=== PATIENT | female | born 1970 | race Caucasian/White ===

== ENCOUNTER 2016-11-05 08:12 | Emergency (ER) | payer MEDICAID ==
[~2016-11-05] VITALS: Ht 157.5 cm; Wt 108.9 kg
[~2016-11-05 08:12] MED LIST: CLON0.5T3 PO; DIVA500T4 PO; KEP500T PO; LURA40TA PO; NOR10T PO; PROM25TA5 PO; PROVENTIL; TEMA30CA PO; TRAM50TA2 PO
[2016-11-05 08:31] VITALS: BP 175/66
[2016-11-05] MEDS ORDERED: ONDANSETRON ODT 4 MG TAB PO ONE (08:45)
== END 2016-11-05 09:19 | disposition home or self-care (01) ==
LOC: ER 08:12
DX: T38.0X1A Poisoning by glucocorticoids and synthetic analogues, accidental (unintentional), initial encounter (principal); J45.909 Unspecified asthma, uncomplicated; Z90.710 Acquired absence of both cervix and uterus; Z98.51 Tubal ligation status; Z91.5 Personal history of self-harm; G89.29 Other chronic pain; M54.9 Dorsalgia, unspecified; Z79.899 Other long term (current) drug therapy; Z88.6 Allergy status to analgesic agent; Z91.040 Latex allergy status; Z91.09 Other allergy status, other than to drugs and biological substances; Y92.9 Unspecified place or not applicable
CPT/HCPCS: 99282; Q0162

== ENCOUNTER 2017-07-31 15:38 | Emergency (ER) | payer MEDICAID ==
[~2017-07-31] VITALS: Ht 157.5 cm; Wt 107.5 kg
[2017-07-31 16:05] VITALS: BP 142/68
[2017-07-31] MEDS ORDERED: KETOROLAC TROMETH 60MG/2ML VIAL IM ONE (16:15)
== END 2017-07-31 17:02 | disposition home or self-care (01) ==
LOC: ER 15:40
DX: G89.29 Other chronic pain (principal); M54.5 Low back pain; M54.16 Radiculopathy, lumbar region; J45.909 Unspecified asthma, uncomplicated; Z88.6 Allergy status to analgesic agent; Z88.8 Allergy status to other drugs, medicaments and biological substances; Z91.040 Latex allergy status; Z79.899 Other long term (current) drug therapy; Z90.710 Acquired absence of both cervix and uterus; Z98.51 Tubal ligation status
CPT/HCPCS: 96372; 99283; J1885

== ENCOUNTER 2018-03-05 08:15 | Emergency (ER) | payer MEDICAID ==
[~2018-03-05] VITALS: Ht 157.5 cm; Wt 104.3 kg
[~2018-03-05 08:15] MED LIST changes: +CLON0.5T10 PO; -CLON0.5T3 PO
[2018-03-05 08:38] VITALS: BP 168/80
[2018-03-05] MEDS ORDERED: LIDOCAINE 1%HCL (LOCAL ANESTH) 10 ML MDV ONE (09:29)
[2018-03-05] MEDS ORDERED: LIDOCAINE 1% HCL (LOCAL ANESTH.) INJ 20ML MDV IJ ONE (09:30)
== END 2018-03-05 10:02 | disposition home or self-care (01) ==
LOC: ER 08:17
DX: N75.1 Abscess of Bartholin's gland (principal); J45.909 Unspecified asthma, uncomplicated; Z90.710 Acquired absence of both cervix and uterus; Z98.51 Tubal ligation status; Z79.899 Other long term (current) drug therapy; Z88.6 Allergy status to analgesic agent; Z88.8 Allergy status to other drugs, medicaments and biological substances; Z91.040 Latex allergy status
CPT/HCPCS: 56420; 99283; J2001

== ENCOUNTER → 2019-07-29 | Emergency (ER) | payer MEDICAID ==
[~2019-07-29] VITALS: Ht 160 cm; Wt 104.3 kg
[~2019-07-29] MED LIST changes: +MORPHINE SULFATE 4 MG/ML SYR/VIAL IV ONE; +ONDANSETRON HCL 4 MG/2 ML VIAL IV ONE; +PANTOPRAZOLE 40 MG/10 ML VIAL INJ IV STA; +SODIUM CHLORIDE 0.9% 1,000 ML IVB ONE
[2019-07-29 14:14] LABS: Urine WBC None Seen /hpf (0 - 5)
[2019-07-29 14:22] LABS: Urine Bacteria NONE SEEN /hpf (None Seen); Urine Blood Negative /uL (Negative); Urine Mucus FEW (None Seen)
[2019-07-29 15:34] LABS: Basophils # (auto) 0.1 10 ^3/uL (0-0.2); Basophils % (auto) 0.8 % (0.0-2.0); Hemoglobin 15.4 g/dL (12.2-16.2); Neutrophils % (auto) 68.4 % (37.0-80.0); Nucleated Red Blood Cells % 0.1 %
[2019-07-29 15:36] LABS: Eosinophils # (auto) 0.1 10 ^3/uL (0-0.8); Eosinophils % (auto) 1.7 % (0.0-7.0); Hematocrit 45.9 % (36.0-46.0); Lymphocytes # (auto) 1.7 10 ^3/uL (0.4-5.4); Mean Corpuscular Hemoglobin 30.2 pg (28.0-32.0); Mean Corpuscular Hgb Conc. 33.5 g/dL (32.0-36.0); Monocytes # (auto) 0.8 10 ^3/uL (0-1.3); Monocytes % (auto) 9.1 % (0.0-12.0); Neutrophils # (auto) 5.7 10 ^3/uL (1.6-8.6); Platelet Count (auto) 186 10^3/uL (140-450); Red Cell Distribution Width 14.6 % (11.8-14.3); White Blood Cell 8.4 10^3/uL (4.4-10.8)
[2019-07-29 16:27] VITALS: BP 129/60
== END | disposition home or self-care (01) ==
LOC: ER 13:54
DX: R10.11 Right upper quadrant pain (principal); J45.909 Unspecified asthma, uncomplicated; Z98.51 Tubal ligation status; Z90.710 Acquired absence of both cervix and uterus; Z88.6 Allergy status to analgesic agent; Z91.040 Latex allergy status
CPT/HCPCS: 36415; 76705; 81001; 85025; 96374; 96375; 99284; C9113; J2270; J2405; J7030

== ENCOUNTER 2019-11-08 10:51 | Emergency (ER) | payer MEDICAID ==
[~2019-11-08] VITALS: Ht 157.5 cm; Wt 99.8 kg
[~2019-11-08 10:51] MED LIST changes: -MORPHINE SULFATE 4 MG/ML SYR/VIAL IV ONE; -ONDANSETRON HCL 4 MG/2 ML VIAL IV ONE; -PANTOPRAZOLE 40 MG/10 ML VIAL INJ IV STA; -SODIUM CHLORIDE 0.9% 1,000 ML IVB ONE
[2019-11-08] MEDS ORDERED: SODIUM CHLORIDE 0.9% 1,000 ML IV ONE (11:08)
[2019-11-08 11:57] LABS: Urine Bacteria NONE SEEN /hpf (None Seen); Urine Blood Negative /uL (Negative); Urine Mucus FEW (None Seen); Urine Specific Gravity 1.009 (1.001-1.035); Urine WBC <1 /hpf (0 - 5)
[2019-11-08 12:07] LABS: Basophils # (auto) 0.1 10 ^3/uL (0-0.2); Basophils % (auto) 0.8 % (0.0-2.0); Eosinophils # (auto) 0.2 10 ^3/uL (0-0.8); Eosinophils % (auto) 2.1 % (0.0-7.0); Hematocrit 44.2 % (36.0-46.0); Hemoglobin 14.4 g/dL (12.2-16.2); Lymphocytes # (auto) 1.4 10 ^3/uL (0.4-5.4); Lymphocytes % (auto) 18.5 % (10.0-50.0); Mean Corpuscular Hemoglobin 29.5 pg (28.0-32.0); Mean Corpuscular Hgb Conc. 32.5 g/dL (32.0-36.0); Mean Corpuscular Volume 90.5 fL (80.0-100.0); Monocytes # (auto) 0.5 10 ^3/uL (0-1.3); Neutrophils # (auto) 5.6 10 ^3/uL (1.6-8.6); Neutrophils % (auto) 71.6 % (37.0-80.0); Platelet Count (auto) 232 10^3/uL (140-450); Red Blood Cells 4.89 10^6/uL (4.0-5.20); Red Cell Distribution Width 14.8 % (11.8-14.3); White Blood Cell 7.8 10^3/uL (4.4-10.8)
[2019-11-08 12:24] LABS: Albumin 3.4 g/dL (3.4-5.0); Anion Gap 7 (5-15); Blood Urea Nitrogen 7 mg/dL (7-18); Calcium 8.3 mg/dL (8.5-10.1); Carbon Dioxide 22 mmol/L (21-32); Chloride 108 mmol/L (98-107); Glucose 103 mg/dL (74-106); Potassium 3.9 mmol/L (3.5-5.1); Sodium 137 mmol/L (136-145)
[2019-11-08 12:27] LABS: Alanine Aminotransferase 13 U/L (13-56); Alkaline Phosphatase 81 U/L (45-117); Aspartate Aminotransferase 18 U/L (15-37); BUN/Creatinine Ratio 9.6; Bilirubin, Total 0.4 mg/dL (0.2-1.0); GFR African American 110 mL/min; GFR Non-African American 91 mL/min
[2019-11-08 16:17] VITALS: BP 127/70
== END 2019-11-08 16:28 | disposition home or self-care (01) ==
LOC: ER 10:51
DX: R42 Dizziness and giddiness (principal); F41.9 Anxiety disorder, unspecified; J45.909 Unspecified asthma, uncomplicated; F32.9 Major depressive disorder, single episode, unspecified
CPT/HCPCS: 36415; 70450; 71046; 80053; 81001; 84484; 85025

== ENCOUNTER 2020-11-21 18:07 | Emergency (ER) | payer MEDICAID ==
[~2020-11-21] VITALS: Ht 157.5 cm; Wt 104.3 kg
[2020-11-21 20:10] VITALS: BP 139/77
[2020-11-21] MEDS ORDERED: KETOROLAC TROMETH 60MG/2ML VIAL IM ONE (20:45)
== END 2020-11-21 21:24 | disposition home or self-care (01) ==
LOC: ER 18:08
DX: S33.5XXA Sprain of ligaments of lumbar spine, initial encounter (principal); M54.42 Lumbago with sciatica, left side; M54.16 Radiculopathy, lumbar region; E66.9 Obesity, unspecified; Z68.41 Body mass index [BMI] 40.0-44.9, adult; J45.909 Unspecified asthma, uncomplicated; Z90.710 Acquired absence of both cervix and uterus; Z79.899 Other long term (current) drug therapy; Z88.5 Allergy status to narcotic agent; Z88.8 Allergy status to other drugs, medicaments and biological substances; Z91.040 Latex allergy status; X58.XXXA Exposure to other specified factors, initial encounter; Y93.89 Activity, other specified; Y92.89 Other specified places as the place of occurrence of the external cause; Y99.8 Other external cause status
CPT/HCPCS: 72100; 96372; 99283; J1885

== ENCOUNTER 2020-12-17 12:10 | Emergency (ER) | payer MEDICAID ==
[~2020-12-17] VITALS: Ht 157.5 cm; Wt 97.5 kg
[2020-12-17 13:53] LABS: Basophils # (auto) 0.1 10 ^3/uL (0-0.2); Basophils % (auto) 0.7 % (0.0-2.0); Eosinophils # (auto) 0.2 10 ^3/uL (0-0.8); Eosinophils % (auto) 1.8 % (0.0-7.0); Hemoglobin 14.1 g/dL (12.2-16.2); Lymphocytes # (auto) 1.6 10 ^3/uL (0.4-5.4); Lymphocytes % (auto) 17.9 % (10.0-50.0); Mean Corpuscular Hemoglobin 29.1 pg (28.0-32.0); Mean Corpuscular Hgb Conc. 32.9 g/dL (32.0-36.0); Mean Corpuscular Volume 88.5 fL (80.0-100.0); Monocytes # (auto) 0.7 10 ^3/uL (0-1.3); Monocytes % (auto) 7.4 % (0.0-12.0); Neutrophils # (auto) 6.5 10 ^3/uL (1.6-8.6); Neutrophils % (auto) 72.2 % (37.0-80.0); Nucleated Red Blood Cells % 0.1 %; Red Blood Cells 4.86 10^6/uL (4.0-5.20); Red Cell Distribution Width 15.7 % (11.8-14.3); White Blood Cell 8.9 10^3/uL (4.4-10.8)
[2020-12-17 14:17] LABS: Albumin 3.7 g/dL (3.4-5.0); Calcium 9.2 mg/dL (8.5-10.1); Potassium 3.4 mmol/L (3.5-5.1)
[2020-12-17 14:20] LABS: BUN/Creatinine Ratio 15.1; Bilirubin, Total 0.6 mg/dL (0.2-1.0); Total Protein 6.8 g/dL (6.4-8.2)
[2020-12-17 18:04] VITALS: BP 137/74
== END 2020-12-17 18:05 | disposition home or self-care (01) ==
LOC: ER 12:10
DX: M54.12 Radiculopathy, cervical region (principal); M54.16 Radiculopathy, lumbar region; R51.9 Headache, unspecified; J45.909 Unspecified asthma, uncomplicated; R07.89 Other chest pain; Z90.710 Acquired absence of both cervix and uterus
CPT/HCPCS: 36415; 70450; 72125; 72131; 80053; 85025; 93005

== ENCOUNTER 2024-07-08 11:18 | Emergency (ER) | payer MEDICAID ==
[~2024-07-08] VITALS: Ht 157.5 cm; Wt 93.8 kg
[~2024-07-08 11:18] MED LIST changes: -CLON0.5T10 PO; +CLON0.5T4 PO; +DIVA-93 PO; -DIVA500T4 PO; -LURA40TA PO; +LURA40TA2 PO; +PROM25TA10 PO; -PROM25TA5 PO
[2024-07-08 11:34] VITALS: RESP 20; TEMP 97.8; O2SAT 98
--- NOTE | 2024-07-08 12:15 | ED.PDOC ---
History of Present Illness HPI Comments A 53 YEAR OLD FEMALE PRESENTS TO THE ED WITH CHIEF COMPLAINT OF HIGH BLOOD PRESSURE AND CHEST PAIN. PATIENT REPORTS THAT SHE HAS STARTED TO EXPERIENCE LEFT SIDED CHEST PAIN WITH ASSOCIATED RADIATION TO THE LEFT ARM AND HEADACHE FOR THE PAST 2 DAYS. PATIENT RELAYS THAT SHE TOOK HER BLOOD PRESSURE AFTER HER SYMPTOM ONSET AND NOTICED HER BP WAS ELEVATED. PATIENT STATES SHE CHECKED HER BP THROUGHOUT THE DAY AND IT REMAINED ELEVATED, SO SHE TRIED SLEEPING FOR RELIEF. PATIENT NOTES HER CHEST PAIN IS NOW MILD, BUT HER BLOOD PRESSURE HAS CONTINUED TO STAY ELEVATED WHEN NORMALLY IT IS ONLY HIGH WHEN UNDERGOING SURGERY. PATIENT DENIES ANY NUMBNESS, WEAKNESS, DIZZINESS, SOB, OR N/V. PT IS ALERT, ORIENTATION X4 WITH NORMAL GAIT. NO OTHER SYMPTOMS REPORTED AT THIS TIME OF CARE. Chief Complaint: High Blood Pressure Time Seen by MD: 12:04 Primary Care Provider: JOAN Reviewed Notes: Nurses Notes, Medications, Allergies Allergies: Coded Allergies: Propoxyphene (Verified Allergy, Severe, 11/21/20) Codeine (Verified Allergy, Mild, 11/21/20) Latex (Verified Allergy, Mild, 11/21/20) Acetaminophen (Verified Allergy, Unknown, 11/21/20) Hydrocodone (Verified Allergy, Unknown, 11/21/20) Uncoded Allergies: DARVOCET (Allergy, Mild, 12/23/10) Home Meds Active Scripts Hydrochlorothiazide W/Triamter (Dyazide 37.5/25MG) 1 Cap Cp, 1 CAP PO DAILY, #20 CAP Prov:ALINA CARPENTER 07/08/24 Levetiracetam (KEPPRA TABLET) 500 Mg Tb, 500 MG PO BID for 30 Days, TAB Prov:JAABRI TAN MD 02/28/14 Reported Medications Lurasidone Hydrochloride (LATUDA) 40 Mg Tab, 1 TAB PO QPM, #30 TAB 1 Refill 02/26/14 Clonazepam (Clonazepam) 0.5 Mg Tab, 0.5 MG PO HS, TAB 02/26/14 Promethazine Hcl (Promethazine Hcl) 25 Mg Tab, 1 TAB PO Q6HPRN, #20 TAB 02/26/14 Divalproex Sodium (Depakote Er) 500 Mg Tab, 2 TAB PO QAM, #60 TAB 1 Refill 02/26/14 Temazepam (Temazepam) 30 Mg Cap, 1 CAP PO QPM, #30 CAP 1 Refill 02/26/14 Tramadol Hcl (Tramadol Hcl) 50 Mg Tab, 50 MG PO BID 02/12/13 Hydrocodone-Acetaminophen ([place] 10/325MG) 1 Tab Tb, 1 TAB PO TID 02/12/13 [Proventil] No Conflict Check 12/23/10 Information Source: Patient Mode of Arrival: Ambulatory Severity: Moderate Timing: Days Duration: Since onset, Intermittent Prehospital treatment: None Medication Refill: For: Hypertension Past Medical History PAST MEDICAL HISTORY: Anxiety, Asthma, Depression Surgical History: , Hysterectomy, Tubal Ligation PATIENT REPRESENTATIVE History: No Pertinent PATIENT REPRESENTATIVE History Family History Family History: Reviewed,noncontributory to illness, Family hx of heart ketty, Family hx of HTN Social History Smoker: Non-Smoker Alcohol: Occasionally Drugs: Marijuana Lives In: Home Constitutional: reports: others (ANXIOUS ); denies: chills, diaphoresis, fatigue, fever, malaise, sweats, weakness EENTM: denies: blurred vision, double vision, ear bleeding, ear discharge, ear drainage, ear pain, ear ringing, eye pain, eye redness, hearing loss, mouth pain, mouth swelling, nasal discharge, nose bleeding, nose congestion, nose pain, photophobia, tearing, throat pain, throat swelling, voice changes, others Respiratory: denies: cough, hemoptysis, orthopnea, SOB at rest, shortness of breath, SOB with excertion, stridor, wheezing, others Cardiovascular: reports: chest pain, left arm pain; denies: dizzy spells, diaph oresis, Dyspnea on exertion, edema, irregular heart beat, lightheadedness, palpitations, PND, syncope, others Gastrointestinal: denies: abdomen distended, abdominal pain, blood streaked bowels, constipated, diarrhea, dysphagia, difficulty swallowing, hematemesis, melena, nausea, poor appetite, poor fluid intake, rectal bleeding, rectal pain, vomiting, others Genitourinary: denies: abnormal vagina bleeding, burning, dyspareunia, dysuria, flank pain, frequency, hematuria, incontinence, pain, , vagina discharge, urgency, others Neurological: reports: headache; denies: dizziness, fainting, left sided numbness, left sided weakness, numbness, paresthesia, pre-existing deficit, right sided numbness, right sided weakness, seizure, speech problems, tingling, tremors, weakness, others Musculoskeletal: denies: back pain, gout, joint pain, joint swelling, muscle pain, muscle stiffness, neck pain, others Integumetry: denies: bruises, change in color, change in hair/nails, dryness, laceration, lesions, lumps, rash, wounds, others Allergic/Immunocompromised: denies: Difficulty Healing, Frequent Infections, Hives, Itching, others Hematologic/Lymphatic: denies: anemia, blood clots, easy bleeding, easy bruising, swollen glands, others Endocrine: denies: excessive hunger, excessive sweating, excessive thirst, excessive urination, flushing, intolerance to cold, intolerance to heat, unexplained weight gain, unexplained weight loss, others Psychiatric: reports: anxiety; denies: bipolar disorder, depression, hopeless, panic disorder, schizophrenia, sleepless, suicidal, others All Other Systems: Reviewed and Negative Physical Exam General Appearance: No Apparent Distress, Normal, Other (ANXIOUS ) HEENT: Normal ENT Inspection, PERRL/EOMI Neck: Full Range of Motion, Non-Tender, Normal, Normal Inspection Respiratory: Chest Non-Tender, Lungs Clear, No Accessory Muscle Use, No Respiratory Distress, Normal Breath Sounds Cardiovascular: No Edema, No JVD, No Murmur, No Gallop, Normal Peripheral Pulses, Regular Rate/Rhythm Breast Exam: Deferred Gastrointestinal: No Organomegaly, Non Tender, No Pulsatile Mass, Normal Bowel Sounds, Soft Genitalia: Deferred Pelvic: Deferred Rectal: Deferred Extremities: No calf tenderness, Normal capillary refill, Normal inspection, Normal range of motion, Non-tender, No pedal edema Musculoskeletal : Apperance: Normal Neurologic: Alert, bladder blower II-XII nml as Tested, No Motor Deficits, Normal Affect, Normal Mood, No Sensory Deficits Cerebellar Function: Normal Reflexes: Normal Skin: Dry, Normal Color, Warm Peripheral Pulses: 2+ carotid (R), 2+ carotid (L) Lymphatic: No Adenopathy Was a procedure done? Was a procedure done?: No EKG EKG : Pulse Rate (adult): 83 [place]: Normal Cardiac Rhythm: NSR Block: None Hypertrophy: None ST: Normal Differential Dx Considerations may include: HTN, NONCARDIAC CHEST PAIN, ANXIETY REACTION X-Ray, Labs, Meds, VS Vital Signs Date Time Temp Pulse Resp B/P (MAP) Pulse Ox O2 Delivery O2 Flow Rate FiO2 07/08/24 13:34 137/78 (97) 07/08/24 12:43 83 07/08/24 11:34 97.8 83 20 152/99 (116) 98 97.8 07/08/24 11:34 83 98 07/08/24 11:34 97.8 83 20 152/99 (116) 98 97.8 07/08/24 11:31 83 Lab Test 07/08/24 12:11 Range/Units White Blood Count 7.1 4.4-10.8 10^3/uL Red Blood Count 4.57 4.0-5.20 10^6/uL Hemoglobin 13.7 12.2-16.2 g/dL Hematocrit 41.3 36.0-46.0 % Mean Corpuscular Volume 90.4 80.0-100.0 fL Mean Corpuscular Hemoglobin 30.0 28.0-32.0 pg Mean Corpuscular Hemoglobin Concent 33.2 32.0-36.0 g/dL Red Cell Distribution Width 15.1 H 11.8-14.3 % Platelet Count 250 140-450 10^3/uL Mean Platelet Volume 8.8 6.9-10.8 fL Neutrophils (%) (Auto) 67.5 37.0-80.0 % Lymphocytes (%) (Auto) 22.2 10.0-50.0 % Monocytes (%) (Auto) 7.1 0.0-12.0 % Eosinophils (%) (Auto) 2.4 0.0-7.0 % Basophils (%) (Auto) 0.8 0.0-2.0 % Neutrophils # (Auto) 4.8 1.6-8.6 10 ^3/uL Lymphocytes # (Auto) 1.6 0.4-5.4 10 ^3/uL Monocytes # (Auto) 0.5 0-1.3 10 ^3/uL Eosinophils # (Auto) 0.2 0-0.8 10 ^3/uL Basophils # (Auto) 0.1 0-0.2 10 ^3/uL Nucleated Red Blood Cells 0.0 % Sodium Level 142 136-145 mmol/L Potassium Level 4.7 3.5-5.1 mmol/L Chloride Level 109 H 98-107 mmol/L Carbon Dioxide Level 26 20-31 mmol/L Anion Gap 7 5-15 Blood Urea Nitrogen 9 9-23 mg/dL Creatinine 0.81 0.550-1.02 mg/dL Glomerular Filtration Rate Calc 88 >90 mL/min BUN/Creatinine Ratio 11.1 10.0-20.0 Serum Glucose 94 74-106 mg/dL Calcium Level 9.6 8.7-10.4 mg/dL Troponin I High Sensitivity < 3 L </=34 ng/L Thyroid Stimulating Hormone (TSH) 2.32 0.55-4.78 uIU/mL X-Ray, Labs, Meds, VS Comment EXTERNAL MEDICAL RECORDS REVIEWED: [NONE] INDEPENDENT HISTORIANS: [NONE] SOCIAL DETERMINANTS OF HEALTH: [NONE] LABS ORDERED: CBC, BMP, TROPONIN, TSH, EKG REVIEWED AND INTERPRETED RESULTS: NONE IMAGING ORDERED: NONE TREATMENTS ORDERED: NONE PROCEDURES PERFORMED: NONE CRITICAL CARE TIME: NONE I HAVE DISCUSSED THE PATIENT WITH THE ATTENDING PHYSICIAN DR. DELAROSA AND HE AGREES WITH THE PATIENT'S PLAN OF CARE AND DISPOSITION. BASED ON HISTORY OF PRESENT ILLNESS, AND PHYSICAL EXAM, PATIENT WILL BE DISCHARGED HOME. DISCUSSED PLAN FOR DISCHARGE HOME WITH RX: DYAZID. MEDICATION WARNINGS GIVEN. SHARED DECISION MAKING: DISCUSSED WITH PATIENT THAT THEIR WORKUP WAS NORMAL. PATIENT INSTRUCTED TO FOLLOW UP WITH PRIMARY CARE PROVIDER IN 1-2 DAYS FOR RE- EVALUATION OF SYMPTOMS. PATIENT VERBALIZES UNDERSTANDING TO RETURN TO ED FOR NEW OR WORSENING SYMPTOMS OR IF FOLLOW UP WITH PCP CANNOT BE OBTAINED. PATIENT FEELS COMFORTABLE GOING HOME AT THIS TIME. ALL QUESTIONS ADDRESSED AT TIME OF DISCHARGE. Time of 1ST Reevaluation: 13:47 Reevaluation 1ST: Improved Patient Education/Counseling: Diagnosis, Treatment, Need For Follow Up Family Education/Counseling: Diagnosis, Treatment, Need For Follow Up Medical Screening: No EMC Exist At This Time Departure 1 Departure Time of Disposition: 13:48 Impression: Primary Impression: Non-cardiac chest pain Additional Impression: HTN (hypertension) Qualified Codes: I10 - Essential (primary) hypertension Disposition: 01 HOME / SELF CARE / HOMELESS Condition: Stable Additional Instructions: FOLLOW-UP WITH PCP IN 1 TO 2 DAYS. TAKE MEDICATIONS PRESCRIBED. RETURN TO ED FOR ANY NEW OR WORSENING SYMPTOMS. e-Prescriptions Hydrochlorothiazide W/Triamter (Dyazide 37.5/25MG) 1 Cap Cp 1 CAP PO DAILY, #20 CAP Prov: ALINA CARPENTER 07/08/24 Discharged With: Self, Relative Critical Care Note Critical Care Time?: No Stability Stability form required: No Heart Score Heart Score: Heart Score Response (Comments) Value History N/A 0 EKG Normal 0 Age 45-64 1 Risk Factors N/A 0 Troponin Normal limit 0 Total 1 I personally scribed for ALINA CARPENTER ([email or web address]) on 07/08/24 at 12:15. Electronically submitted by Александр Wallis ([email or web address]). I personally scribed for ALINA CARPENTER ([email or web address]) on 07/08/24 at 12:16. Electronically submitted by Александр Wallis ([email or web address]). ALINA CARPENTER Jul 08, 2024 12:15
[2024-07-08 12:39] LABS: Basophils # (auto) 0.1 10 ^3/uL (0-0.2); Basophils % (auto) 0.8 % (0.0-2.0); Eosinophils # (auto) 0.2 10 ^3/uL (0-0.8); Eosinophils % (auto) 2.4 % (0.0-7.0); Hematocrit 41.3 % (36.0-46.0); Hemoglobin 13.7 g/dL (12.2-16.2); Lymphocytes # (auto) 1.6 10 ^3/uL (0.4-5.4); Lymphocytes % (auto) 22.2 % (10.0-50.0); Mean Corpuscular Hgb Conc. 33.2 g/dL (32.0-36.0); Mean Corpuscular Volume 90.4 fL (80.0-100.0); Monocytes # (auto) 0.5 10 ^3/uL (0-1.3); Monocytes % (auto) 7.1 % (0.0-12.0); Neutrophils # (auto) 4.8 10 ^3/uL (1.6-8.6); Neutrophils % (auto) 67.5 % (37.0-80.0); Platelet Count (auto) 250 10^3/uL (140-450); Red Blood Cells 4.57 10^6/uL (4.0-5.20); Red Cell Distribution Width 15.1 % (11.8-14.3); White Blood Cell 7.1 10^3/uL (4.4-10.8)
[2024-07-08 12:43] VITALS: PULSE 83
[2024-07-08 12:55] LABS: Anion Gap 7 (5-15); Carbon Dioxide 26 mmol/L (20-31); Potassium 4.7 mmol/L (3.5-5.1); Sodium 142 mmol/L (136-145)
[2024-07-08 12:56] LABS: Calcium 9.6 mg/dL (8.7-10.4)
[2024-07-08 13:01] LABS: BUN/Creatinine Ratio 11.1 (10.0-20.0); Glucose 94 mg/dL (74-106)
[2024-07-08 13:03] LABS: Blood Urea Nitrogen 9 mg/dL (9-23); Chloride 109 mmol/L (98-107)
[2024-07-08] MEDS ORDERED: TRIA37.587 PO (13:24)
[2024-07-08 13:34] VITALS: BP 137/78
--- NOTE | 2024-07-09 12:19 | ECG ---
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
== END 2024-07-08 13:35 | disposition home or self-care (01) ==
LOC: ER 11:18
DX: I10 Essential (primary) hypertension (principal); F41.9 Anxiety disorder, unspecified; J45.909 Unspecified asthma, uncomplicated; F32.A Depression, unspecified; Z90.710 Acquired absence of both cervix and uterus; Z98.51 Tubal ligation status; Z98.890 Other specified postprocedural states; Z79.899 Other long term (current) drug therapy; Z88.5 Allergy status to narcotic agent; Z91.040 Latex allergy status; Z88.6 Allergy status to analgesic agent; Z88.8 Allergy status to other drugs, medicaments and biological substances
CPT/HCPCS: 36415; 80048; 84443; 84484; 85025; 93005